=== PATIENT | male | born 1970 | race Caucasian/White ===

== ENCOUNTER 2017-09-29 23:40 | Day surgery (SDC) | payer BC, OTHER ==
[~2017-09-29] VITALS: Ht 188 cm; Wt 120.2 kg
[~2017-09-29 23:40] MED LIST: Flexeril PO; HYDR-756 PO; HYDR-87 PO; HYDR50TA3 PO; INSU100V5 SQ; PAMI30VI8 SQ
--- OUTSIDE RECORDS SUMMARY | 2017-09-29 23:45 | XMS REPORT ---
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
--- OUTSIDE RECORDS SUMMARY | 2017-09-29 23:45 | XMS REPORT ---
Author Author NOEMI SEAN Organization [facility] Address [address] [place] [address] Care Team Providers Care Steam Conditioner Filling Name Role Phone NOEMIJABARI TOBARHANY Unavailable PROBLEMS Type Condition ICD9-CM Code [id number] Code Onset Dates Condition Status SNOMED Code Problem Chronic prescription opiate use Z79.899 Active 083258630 Problem Type 2 diabetes mellitus with other specified complication E11.69 Active 376820815 Problem Elevated LFTs R79.89 Active 404546086 Problem Essential hypertension I10 Active 28626748 Problem Type 2 diabetes mellitus with hyperglycemia E11.65 Active 76424902 Problem Mixed hyperlipidemia E78.2 Active 701444608 Problem 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.817 Active 54417378 Problem Diabetic polyneuropathy associated with type 2 diabetes mellitus E11.42 Active 86873001 Problem Other hammer toe(s) (acquired), right foot M20.41 Active 479229466 Problem [facility] current use of insulin Z79.4 Active 819012173 Problem Type 2 diabetes mellitus with diabetic polyneuropathy E11.42 Active 71641523 Problem Other hammer toe(s) (acquired), left foot M20.42 Active 52031030 Problem Erectile dysfunction due to diseases classified elsewhere N52.1 Active 456257581 ALLERGIES Substance Reaction Event Type Date Status N.K.D.A. Unknown Non Drug Allergy Oct, Unknown SOCIAL HISTORY No smoking Hx information available PLAN OF CARE Activity Details Follow Up 3 Months Reason:DMII VITAL SIGNS Height 74 in 2016-10-26 Weight 273.0 lbs 2016-10-26 Temperature 98.7 degrees Fahrenheit 2016-10-26 Heart Rate 80 bpm 2016-10-26 Respiratory Rate 20 2016-10-26 BMI 35.05 kg/m2 2016-10-26 Blood pressure systolic 130 mmHg 2016-10-26 Blood pressure diastolic 86 mmHg 2016-10-26 MEDICATIONS Medication Instructions Dosage Frequency Start Date End Date Duration Status Hydrocodone-Acetaminophen 7.5-325 MG Orally hs 1 tablet as needed Sep Active Cyclobenzaprine HCl 10 mg Orally 2 times a day 1 tablet as needed 12h 30 Active Sildenafil Citrate 50 mg Orally Once a day 30min-4hours prior to intercourse 1 tablet as needed Apr, Active Humalog 100 UNIT/ML 30 units before each meal Active Lyrica 75 MG Orally Twice a day 1 capsule 12h Sep, Active Metformin HCl 1000 MG Orally twice a day 1 tablets 12h 10 May, 2015 30 days Active Lovastatin 20 mg oral Once a day 1 tablet 24h 30 days Active Levemir 100 UNIT/ML Subcutaneous twice a day 40 units Active Hydrochlorothiazide 50 mg Orally Once a day 1 tablet 24h 30 days Active RESULTS No Results PROCEDURES Procedure Date Ordered Related Diagnosis Body Site No Charge Oct 26, 2016 Office Visit, Est Pt., Level 3 Oct 26, 2016 IMMUNIZATIONS No Known Immunizations
--- OUTSIDE RECORDS SUMMARY | 2017-09-29 23:45 | XMS REPORT ---
Author Author SEAN FRANKLIN [facility] eClinicalWorks Address Unknown Phone Unavailable Care Team Providers Care Infant Childcare Provider Name Role Phone SEAN FRANKLIN CP Unavailable Allergies, Adverse Reactions, Alerts Substance Reaction Event Type N.K.D.A. Info Not Available Non Drug Allergy Problems Problem Type Condition Code Onset Dates Condition Status Problem Essential hypertension I10 Active Problem Mixed hyperlipidemia E78.2 Active Problem Type 2 diabetes mellitus with hyperglycemia E11.65 Active Assessment 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.817 Active Assessment Type 2 diabetes mellitus with hyperglycemia E11.65 Active Problem 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.817 Active Assessment Essential hypertension I10 Active Medications Medication Code System Code Instructions Start Date End Date Status Dosage Metformin HCl [facility] [address]-48 1000 MG Orally Once a day Jun 02, 2015 2 tablets Cyclobenzaprine HCl [facility] [address]-03 10 MG Orally 2 times a day 1 tablet as needed Levemir [facility] [address]-79 100 UNIT/ML Subcutaneous Once a day at bedtime Jun 03, 2015 40 units Humalog [facility] 24424040225 100 UNIT/ML INJECT 10 TO 20 UNITS SUBCUTANEOUSLY TWICE DAILY BEFORE MEALS Hydrochlorothiazide [facility] [address]-58 50 MG Orally Once a day 1 tablet Hydrocodone-Acetaminophen [facility] [address]-19 7.5-325 MG Orally every 4 hrs 1 tablet as needed Lovastatin [facility] [address]-11 20 MG TAKE ONE TABLET BY MOUTH DAILY WITH EVENING MEAL Procedures Procedure Coding System Code Date Office Visit, Est Pt., Level 3 CPT-4 22111 Aug 08, 2015 GLYCATED HEMOGLOBIN TEST CPT-4 00560 Aug 08, 2015 Vital Signs Date/Time: Aug 08, 2015 Temperature 97.2 F Weight 267.8 lbs Height 74 in BMI 34.38 Index Blood Pressure Diastolic 82 mmHg Blood Pressure Systolic 126 mmHg Cardiac Monitoring Heart Rate 88 bpm Results No Known Results Summary Purpose eClinicalWorks Submission
--- OUTSIDE RECORDS SUMMARY | 2017-09-29 23:45 | XMS REPORT ---
Author Author SEAN FRANKLIN [facility] eClinicalWorks Address Unknown Phone Unavailable Care Team Providers Care Sales Appointment Coordinator Name Role Phone SEAN FRANKLIN CP Unavailable Allergies No Known Allergies Problems Problem Type Condition ICD-9 Code Onset Dates Condition Status Problem Diabetes mellitus without mention of complication, type II or unspecified type, not stated as uncontrolled 250.00 Active Problem Essential hypertension, benign 401.1 Active Problem Lumbosacral spondylosis without myelopathy 721.3 Active Problem Other and unspecified hyperlipidemia 272.4 Active Medications Medication Code System Code Instructions Start Date End Date Status Dosage Hydrocodone-Acetaminophen [facility] [address]-78 7.5-325 MG Orally every 4 hrs 1 tablet as needed Results No Known Results Summary Purpose eClinicalWorks Submission
--- OUTSIDE RECORDS SUMMARY | 2017-09-29 23:45 | XMS REPORT ---
Author Author NOEMI SEAN Organization [facility] Address [address] [place] [address] Care Team Providers Care Alarm Signal Operator Name Role Phone NOEMIJABARI TOBARHANY Unavailable PROBLEMS Type Condition ICD9-CM Code [id number] Code Onset Dates Condition Status SNOMED Code Problem Chronic prescription opiate use Z79.899 Active 716311442 Problem Type 2 diabetes mellitus with other specified complication E11.69 Active 647242663 Problem Elevated LFTs R79.89 Active 193837106 Problem Essential hypertension I10 Active 42807637 Problem Type 2 diabetes mellitus with hyperglycemia E11.65 Active 40230929 Problem Mixed hyperlipidemia E78.2 Active 094572004 Problem 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.817 Active 23147659 Problem Diabetic polyneuropathy associated with type 2 diabetes mellitus E11.42 Active 52723670 Problem Other hammer toe(s) (acquired), right foot M20.41 Active 037009434 Problem 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 Active 089857360 Problem Type 2 diabetes mellitus with diabetic polyneuropathy E11.42 Active 49661256 Problem Other hammer toe(s) (acquired), left foot M20.42 Active 72993910 Problem Erectile dysfunction due to diseases classified elsewhere N52.1 Active 838501244 ALLERGIES No Information SOCIAL HISTORY Never Assessed PLAN OF CARE VITAL SIGNS MEDICATIONS Medication Instructions Dosage Frequency Start Date End Date Duration Status Metformin HCl 1000 MG Orally twice a day 1 tablets 12h 10 May, 2015 30 days Active RESULTS No Results PROCEDURES No Known procedures IMMUNIZATIONS No Known Immunizations MEDICAL (GENERAL) HISTORY Type Description Date Medical History hypertension Medical History hyperlipidemia Medical History type II diabetes Medical History Arthritis Medical History chronic pain-lumbar spine, neck Surgical History cholecystectomy Surgical History gastric sleeve 08/2014 Hospitalization History Hospitalization for surgery only
--- OUTSIDE RECORDS SUMMARY | 2017-09-29 23:46 | XMS REPORT | Clinical Summary ---
Author Author User, [employer] Organization [facility] Address Unknown Phone Unavailable Allergies, Adverse Reactions, Alerts Allergy Name Reaction Description Start Date Severity Status Provider LYDIA INHIBITORS Dizziness Critical Active Clarissa Ring Conditions or Problems Problem Name Problem Code Onset Date Status Entry Date Provider Comment Standard Description Annotate DIABETES MELLITUS, TYPE II, UNCONTROLLED, W/O COMPLICATIONS 250.02 Active Clarissa Ring Diabetes mellitus without mention of complication, type II or unspecified type, uncontrolled OBESITY 278.00 Active Clarissa Ring Obesity, unspecified HYPERCHOLESTEROLEMIA 272.0 Resolved Clarissa Ring Pure hypercholesterolemia BACK PAIN 724.5 Active Clairssa Ring Backache, unspecified ELEVATED BLOOD PRESSURE WITHOUT DIAGNOSIS OF HYPERTENSION 796.2 Resolved Clarissa Ring Elevated blood pressure reading without diagnosis of hypertension SINUS CONGESTION 478.1 Resolved Clarissa Ring Other diseases of nasal cavity and sinuses SINUSITIS, ACUTE 461.9 Resolved Clarissa Ring Acute sinusitis, unspecified HIP PAIN 719.45 Resolved Clarissa Ring Pain in joint involving pelvic region and thigh VARICOSE VEINS, LOWER EXTREMITIES 454.9 Resolved Clarissa Ring Asymptomatic varicose veins KIDNEY DISORDER NOS 593.9 Resolved Clarissa Ring Unspecified disorder of kidney and ureter SHOULDER PAIN 719.41 Resolved Clarissa Ring Pain in joint involving shoulder region right FEVER 780.6 Resolved Clarissa Ring Fever and other physiologic disturbances of temperature regulation SINUS CONGESTION 478.1 Resolved Clarissa Ring Other diseases of nasal cavity and sinuses SINUSITIS 473.9 Resolved Clairssa Ring Unspecified sinusitis (chronic) PHARYNGITIS, ACUTE 462 Resolved Clarissa Ring Acute pharyngitis C8 RADICULOPATHY 723.4 Resolved Clarissa Ring Brachial neuritis or radiculitis NOS TINEA PEDIS 110.4 Resolved Clarissa Ring Dermatophytosis of foot ACUTE SPHENOIDAL SINUSITIS 461.3 Resolved Clarissa Ring Acute sphenoidal sinusitis HYPERTENSION 401.1 Active Clarissa Ring Benign essential hypertension HYPERLIPIDEMIA 272.4 Active Clarissa Ring Other and unspecified hyperlipidemia CHEST PAIN, ATYPICAL 786.59 Resolved Clarissa Ring Other chest pain HEALTH SCREENING V70.0 Resolved Clarissa Ring Routine general medical examination at a health care facility COUGH 786.2 Resolved Clarissa Ring Cough SINUSITIS, SPHENOIDAL, ACUTE 461.3 Inactive Clarissa Ring Acute sphenoidal sinusitis HEALTH SCREENING V70.0 Inactive Clarissa Ring Routine general medical examination at a health care facility SINUSITIS, SPHENOIDAL, ACUTE 461.3 Resolved Clarissa Ring Acute sphenoidal sinusitis POSTNASAL DRIP SYNDROME 473.9 Active Clarissa Ring Unspecified sinusitis (chronic) HYPOGLYCEMIA 251.2 Active Clarissa Ring Hypoglycemia, unspecified Medication List Medication Instructions Start Date Stop Date Generic Name NDC Status Provider Patient Instruction NOVOLOG FLEXPEN 100 UNIT/ML SOPN 15 UNITS BEFORE MEALS INSULIN ASPART 27595183565 Active Arline Leggett LANTUS SOLOSTAR 100 UNIT/ML SOLN 35 units injection qHS INSULIN GLARGINE 88928387183 Active Clarissa Ring HUMALOG KWIKPEN 100 UNIT/ML SOLN 15 units before meals INSULIN LISPRO (HUMAN) 47331231168 No Longer Active Arline Leggett BYDUREON 2 MG SUSR 1 injection weekly. EXENATIDE 53526549552 No Longer Active Clarissa Ring CYCLOBENZAPRINE HCL 10 MG TABS 1 PO TID PRN CYCLOBENZAPRINE HCL 17932008921 Active Arline Leggett ATROVENT 0.06 % SOLN 2 puffs each nostril TID prn runny nose 2013 IPRATROPIUM BROMIDE 75565005038 No Longer Active Clarissa Ring TESSALON PERLES 100 MG CAPS 1 PO TID prn cough BENZONATATE 98777338004 No Longer Active Clarissa Ring AUGMENTIN 875-125 MG TAB 1 PO BID AMOXICILLIN-POT CLAVULANATE 46787492237 No Longer Active Clarissa Ring HYDROCHLOROTHIAZIDE 25 MG TABS 1-2 PO daily HYDROCHLOROTHIAZIDE 64533655388 Active Arline Leggtet HYDROCODONE-ACETAMINOPHEN 7.5-325 MG TABS 1 po Q6hrs prn pain HYDROCODONE-ACETAMINOPHEN 40828250835 Active Clarissa Ring AUGMENTIN 875-125 MG TAB 1 PO BID AMOXICILLIN-POT CLAVULANATE 64215834979 No Longer Active Clarissa KAYE'S NASAL SPRAY (DEXAMETHASONE, GENTAMICIN, SALINE) 2 puffs each nostril TID for [address] DIAZ NASAL SPRAY ( DEXAMETHASONE, GENTAMICIN, SALINE) No Longer Active Clarissa Ring BD PEN NEEDLE SHORT U/F 31G X 8 MM MISC DIRECTED DX: DIABETES INSULIN PEN NEEDLE 79123331833 No Longer Active Arline Leggett RELION PEN NEEDLES 31G X 8 MM MISC DIRECTED DX: DIABETES INSULIN PEN NEEDLE 79322042760 Active Arline Leggett VICTOZA 18 MG/3ML SOLN 1.2mg injection QHS LIRAGLUTIDE 05316069098 No Longer Active Clarissa Ring BD INSULIN SYRINGE 29G X 1/2" 2 ML MISC as directed INSULIN SYRINGE-NEEDLE U-100 01014988827 No Longer Active Clarissa Ring BD SAFETY-JOSE INSULIN SYRINGE 29G X 1/2" 1 ML MISC as directed INSULIN SYRINGE-NEEDLE U-100 96182886293 No Longer Active Clarissa HOWEFRARUNA ODT 4 MG TBDP 1 PO Q6hrs prn ONDANSETRON 88950336059 No Longer Active Clarissa Ring GLUCOMETER TEST STRIPS TEST BS BID DX: DIABETES GLUCOMETER TEST STRIPS No Longer Active Clarissa Ring GLUCOMETER MACHINE DX: Diabetes GLUCOMETER MACHINE No Longer Active Clarissa Ring PEN NEEDLES /16" 31G X 8 MM MISC as directed INSULIN PEN NEEDLE 01923395754 No Longer Active Clarissa Ring AMOXIL 875 MG TABS 1 PO BID AMOXICILLIN No Longer Active José Luis DIAZ NASAL SPRAY (DEXAMETHASONE, GENTAMICIN, SALINE) 2 puffs each nostril TID for [address] DIAZ NASAL SPRAY ( DEXAMETHASONE, GENTAMICIN, SALINE) No Longer Active Clarissa Ring AUGMENTIN 875-125 MG TAB 1 PO BID AMOXICILLIN-POT CLAVULANATE 53156538365 No Longer Active Clarissa Aleta Ring PHENERGAN 25 MG TAB 1 PO Q6hrs prn PROMETHAZINE HCL No Longer Active Clairssa Aleta Ring HUMALOG SOLN 20-30units before meals INSULIN LISPRO (HUMAN) SOLN 03024733659 No Longer Active Clarissa Aleta Ring HUMALOG 100 U/ML SOLN 10 units SQ before meals INSULIN LISPRO (HUMAN) 15690918469 No Longer Active Clarissa Aleta Ring AUGMENTIN 875-125 MG TAB 1 PO BID AMOXICILLIN-POT CLAVULANATE 22465783740 No Longer Active Clarissa Aleta Ring PHENTERMINE HCL 37.5 MG CAPS 1 PO Daily PHENTERMINE HCL 75129151922 No Longer Active Clarissa Aleta Ring VITAMIN D 1000 UNIT TABS 1 PO Daily CHOLECALCIFEROL 56499342417 Active Clarissa Aleta Ring AUGMENTIN 875-125 MG TAB 1 PO BID AMOXICILLIN-POT CLAVULANATE 79077308827 No Longer Active Clarissaruth Ring GLUCOPHAGE 1000 MG TAB 1 PO BID METFORMIN HCL 49117226711 Active Arline Leggett CINNAMON CAPS 1000mg PO daily CINNAMON CAPS 90208270161 No Longer Active Clarissa Aleta Ring BYETTA 10 MCG PEN 10 MCG/0.04ML SOLN 1 injection BID EXENATIDE 19820347841 No Longer Active Clarissaruth Ring [id number] SOLN 2 drops left eye TID for 7 days [id number]-[id number] 25011865682 No Longer Active Clarissaruth Ring AUGMENTIN 875-125 MG TAB 1 PO BID AMOXICILLIN-POT CLAVULANATE 55616582778 No Longer Active Clarissa DIAZ NASAL SPRAY (DEXAMETHASONE, GENTAMICIN, SALINE) 2 puffs each nostril TID for [address] DIAZ NASAL SPRAY ( DEXAMETHASONE, GENTAMICIN, SALINE) No Longer Active Clarissa Ring PHENTERMINE HCL 37.5 MG CAPS 1 PO Daily PHENTERMINE HCL 87009932400 No Longer Active Clarissa Ring XANAX 1 MG TABS 1/2 PO QHS prn ALPRAZOLAM 56540792139 No Longer Active Clarissa Ring LOVASTATIN 20 MG TABS 1 PO daily LOVASTATIN 34018294620 Active Arline Leggett BENAZEPRIL HCL 20 MG TABS 1 PO daily (on hold) BENAZEPRIL HCL 88322888458 No Longer Active Clarissa Ring LOTRISONE 0.05-1 % CREAM apply to affected area BID for 10 days CLOTRIMAZOLE-BETAMETHASONE 41747973936 No Longer Active Clarissa Ring GLYBURIDE 1.25 MG TABS 1 PO BID GLYBURIDE 86222997446 No Longer Active Clarissa Ring PHENTERMINE HCL 37.5 MG CAPS 1 PO Daily PHENTERMINE HCL 47411498757 No Longer Active Clarissa Ring BIAXIN 500 MG TAB 1 PO BID for 7 days CLARITHROMYCIN 99614839387 No Longer Active Clarissa Ring GLUCOVANCE 1.25-250 MG TABS 1 PO BID GLYBURIDE- METFORMIN 92245106969 No Longer Active Clarissa DIAZ NASAL SPRAY (DEXAMETHASONE, GENTAMICIN, SALINE) 2 puffs each nostril TID DR. KAYE'S NASAL SPRAY (DEXAMETHASONE, GENTAMICIN, SALINE) No Longer Active Clarissa Aleta Ring AUGMENTIN 875-125 MG TABS 1 PO BID for 7 days AMOXICILLIN-POT CLAVULANATE 84100644507 No Longer Active Clarissa Aleta Ring LOTENSIN HCT 20-25 MG TABS 1 PO daily BENAZEPRIL- HYDROCHLOROTHIAZIDE 52268049213 No Longer Active Clarissa Aleta Ring SKELAXIN 800 MG TABS 1 PO BID prn METAXALONE 58660860523 No Longer Active Clarissa Aleta Ring HYDROCHLOROTHIAZIDE 25 MG TAB 1 PO QD HYDROCHLOROTHIAZIDE 36760876897 No Longer Active Clarissa Aleta Ring AMOXIL 500 MG CAPS 1 PO TID for 7 days AMOXICILLIN 80291789694 No Longer Active Clarissa Aleta KAYE'Roderick NASAL SPRAY [address] DIAZ NASAL SPRAY No Longer Active Clarissa Aleta Ring FLEXERIL 10 MG TABS 1 PO TID prn CYCLOBENZAPRINE HCL 82187295492 No Longer Active Clarissa Aleta Ring AMOXICILLIN 500 MG CAPS 1 po TID AMOXICILLIN 24355711199 No Longer Active Clarissa Aleta Ring NAFTIN 1 % CREA Apply to affected area daily NAFTIFINE HCL 07638639694 No Longer Active Clarissa Aleta Ring PALGIC 4 MG TABS 1 PO QD CARBINOXAMINE MALEATE 89198735364 No Longer Active Clarissa Aleta Ring ATROVENT 0.06 % SOLN 2 puffs q nostril bid IPRATROPIUM BROMIDE 00184541249 No Longer Active Clarissa Aleta Ring ZITHROMAX Z-CHRISTIN 250 MG TABS 2 tabs today, then 1 tab x 4 days AZITHROMYCIN 04201284533 No Longer Active Clarissa Aleta Ring GLUCOPHAGE 500 MG TABS 1 tab po bid METFORMIN HCL 69103744037 No Longer Active Clarissa Ring GLUCOPHAGE XR 500 MG TB24 2 PO QD METFORMIN HCL 39240418902 No Longer Active Arline Leggett Immunizations Vaccine Administration Date Value Standard Description Influenza vaccine given Done influenza virus vaccine, unspecified formulation Vital Signs Date Name Value Unit Range Description blood pressure, diastolic - 8462-4 80 mm[Hg] BP zavala blood pressure, systolic - 8480-6 120 mm[Hg] BP sys pulse rate E&M - 8867-4 80 /min Heart rate respiratory rate E&M - 9279-1 14 /min Resp rate temperature E&M 98.6 [degF] Body temperature weight E&M - 3141-9 262 [lb_av] Weight Measured blood pressure, diastolic - 8462-4 80 mm[Hg] BP zavala blood pressure, systolic - 8480-6 134 mm[Hg] BP sys pulse rate E&M - 8867-4 70 /min Heart rate respiratory rate E&M - 9279-1 12 /min Resp rate temperature E&M 98.1 [degF] Body temperature weight E&M - 3141-9 269 [lb_av] Weight Measured blood pressure, diastolic - 8462-4 80 mm[Hg] BP zavala blood pressure, systolic - 8480-6 140 mm[Hg] BP sys pulse rate E&M - 8867-4 92 /min Heart rate respiratory rate E&M - 9279-1 14 /min Resp rate temperature E&M 98.6 [degF] Body temperature weight E&M - 3141-9 270 [lb_av] Weight Measured Diagnostic Results Date Name Value Unit Range Description Clinical Lists Update: CBC,CMP,Chol,Trig,HgA1c - Chemistry Estimated Glomerular Filtration Rate (calc) 118 mL/min/1.73m2 potassium, serum 3.8 mmol/L glucose, plasma fasting 211 mg/dL alkaline phosphatase, serum 79 U/L anion gap, serum 19 urea nitrogen, blood 10 mg/dL sodium, serum 137 mmol/L calcium, serum 9.5 mg/dL triglyceride, serum, fasting 319 mg/dL chloride, serum 94 mmol/L bilirubin, serum, total 0.9 mg/dL cholesterol, serum 154 mg/dL alanine aminotransferase (SGPT), serum 84 U/L carbon dioxide, venous blood 28.0 mmol/L aspartate aminotransferase (SGOT), serum 56 U/L creatinine, serum 0.8 mg/dL protein, total, serum 6.9 g/dL hemoglobin A1C, blood, as % of total hemoglobin 10.1 % albumin, serum 4.7 g/dL Clinical Lists Update: CBC,CMP,Chol,Trig,HgA1c - Hematology hematocrit, blood 51 % hemoglobin, blood 16.7 g/dL platelet count 206 10*3/mm3 erythrocyte (RBC) count 5.46 10*6/mm3 leukocyte count, blood 6.8 10*3/mm3 mean corpuscular volume, RBC 93 fL red blood cell distribution width 13.1 % Clinical Lists Update: CMP,Chol,Trig,HgA1c,Microalbumin - Chemistry bilirubin, serum, total 0.8 mg/dL potassium, serum 4.0 mmol/L triglyceride, serum, fasting 143 mg/dL chloride, serum 97 mmol/L sodium, serum 137 mmol/L calcium, serum 9.6 mg/dL anion gap, serum 13 urea nitrogen, blood 11 mg/dL glucose, plasma fasting 179 mg/dL alkaline phosphatase, serum 58 U/L Estimated Glomerular Filtration Rate (calc) 111 mL/min/1.73m2 albumin, serum 4.6 g/dL cholesterol, serum 129 mg/dL carbon dioxide, venous blood 31.0 mmol/L alanine aminotransferase (SGPT), serum 65 U/L creatinine, serum 0.8 mg/dL aspartate aminotransferase (SGOT), serum 42 U/L hemoglobin A1C, blood, as % of total hemoglobin 8.5 % protein, total, serum 6.8 g/dL Clinical Lists Update: CMP,Chol,Trig,HgA1c,Microalbumin - Urinalysis microalbumin, urine, semiquantitative 0.9 mg/dL Encounters Code Encounter Date Provider Facility CPT-15348 Ofc Vst, Est Level IV 14:10:16 CDT Clarissa Ring DO, FACP CPT-21474 Ofc Vst, Est Level III 12:20:17 CDT Clarissa Ring DO, FACP CPT-57785 Ofc Vst, Est Level IV 17:08:23 CDT Clarissa Ring DO, FACP CPT-71346 Ofc Vst, Est Level III 12:23:49 PLANTING MATERIAL CARRIER Clarissa Ring DO, FACP CPT-67767 Ofc Vst, Est Level III 12:00:18 CDT Clarissa Ring DO, FACP CPT-40006 Ofc Vst, Est Level IV 10:59:00 CDT Clarissa Ring DO, FACP CPT-38616 Ofc Vst, Est Level III 16:28:00 CDT Clarissaruth [facility] CPT-69015 Ofc Vst, Est Level IV 11:17:00 CDT Clarissa Aleta Vaughn Ring, DO, FACP CPT-09209 Ofc Vst, Est Level IV 10:26:54 CDT Clarissaruth Vaughn María Elena, DO, FACP CPT-05058 Ofc Vst, Est Level IV 13:38:30 PLANTING MATERIAL CARRIER Clarissa Vaughn María Elena, DO, FACP CPT-76686 Ofc Vst, Est Level IV 10:23:30 CDT Clarissa Aelta Vaughn María Elena, DO, FACP CPT-80668 Ofc Vst, Est Level IV 11:52:42 CDT Clarissa Vaughn María Elena, DO, FACP CPT-49064 Ofc Vst, Est Level IV 11:20:48 PLANTING MATERIAL CARRIER Clarissa Vaughn María Elena, DO, FACP CPT-10804 Ofc Vst, Est Level V 11:42:54 CDT Clarissa Vaughn María Elena, DO, FACP CPT-55944 Ofc Vst, Est Level IV 11:26:09 CDT Clarissa Vaughn María Elena, DO, FACP CPT-64248 Ofc Vst, Est Level IV 09:56:44 CDT Clarissaruth Vaughn María Elena, DO, FACP CPT-27876 Ofc Vst, Est Level IV 13:49:19 CDT Clarissa Aleta Vaughn María Elena, DO, FACP CPT-39644 Ofc Vst, Est Level IV 13:55:27 PLANTING MATERIAL CARRIER Clarissa Vaughn María Elena, DO, FACP CPT-56889 Ofc Vst, Est Level IV 11:28:40 CDT Clarissa Aleta Vaughn María Elena, DO, FACP CPT-08037 Ofc Vst, Est Level IV 16:13:54 PLANTING MATERIAL CARRIER Clarissa Aleta María Elena Ring, DO, FACP CPT-95686 Ofc Vst, Est Level IV 13:52:43 CDT Clarissa Aleta María Elena Ring, DO, FACP CPT-71578 Ofc Vst, Est Level IV 10:07:24 CDT Clarissa Aleta María Elena Clarissaruth Ring, DO, FACP CPT-09837 Ofc Vst, Est Level V 09:47:24 CDT Clarissa Aleta María Elena Ring, DO, FACP CPT-61303 Ofc Vst, Est Level IV 14:40:42 CDT Clarissa Aletadon Ring, DO, FACP CPT-06050 Ofc Vst, Est Level IV 10:20:34 PLANTING MATERIAL CARRIER Clarissa Ring [facility] CPT-85995 Ofc Vst, Est Level III 10:31:18 PLANTING MATERIAL CARRIER Clarissa Ring [facility] CPT-66564 Ofc Vst, Est Level IV 10:55:42 CDT Clarissa Ring [facility] CPT-53179 Ofc Vst, Est Level III 16:11:26 CDT Clarissa Ring [facility] CPT-50076 Ofc Vst, Est Level IV 13:58:42 CDT Clarissa Aleta Ring [facility] CPT-49798 Ofc Vst, Est Level IV 09:52:20 PLANTING MATERIAL CARRIER Clarissa Ring [facility] CPT-73266 Ofc Vst, Est Level IV 11:17:40 PLANTING MATERIAL CARRIER Clarissa Ring [facility] CPT-57150 Ofc Vst, Est Level IV 11:26:57 CDT Clarissaruth Ring [facility] CPT-62109 Ofc Vst, Est Level IV 13:10:50 PLANTING MATERIAL CARRIER Clarissa Ring [facility] CPT-13868 Ofc Vst, Est Level IV 18:26:20 CDT Clarissa Ring [facility] CPT-91321 Ofc Vst, Est Level IV 13:25:01 CDT Clarissa Ring [facility] CPT-12691 Ofc Vst, Est Level IV 12:46:30 CDT [facility] Aleta Ring [facility] CPT-05345 Ofc Vst, Est Level IV 17:01:43 CDT [facility] Aleta Ring [facility] CPT-93638 Ofc Vst, New Level IV 14:01:02 CDT Clarissa Aleta Ring [facility] Procedures Code Procedure Name Date Entry Date Standard Description CPT-82452 Preventive, Est, (40-64) 14:08:40 CDT CPT-80287 Preventive, Est, (40-64) 14:20:11 PLANTING MATERIAL CARRIER
--- OUTSIDE RECORDS SUMMARY | 2017-09-29 23:46 | XMS REPORT ---
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.817 Active 36831424 Problem Elevated LFTs R79.89 Active 423510149 Problem Type 2 diabetes mellitus with other specified complication E11.69 Active 906772248 Problem 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
--- OUTSIDE RECORDS SUMMARY | 2017-09-29 23:46 | XMS REPORT ---
Author Author SEAN FRANKLIN [facility] [employer] Address Unknown Phone Unavailable Care Team Providers Care Case Assembler Name Role Phone SEAN FRANKLIN CP Unavailable [...] Instructions Start Date End Date Status Dosage Cyclobenzaprine HCl [facility] [address]-18 10 MG Orally 2 times a day 1 tablet as needed Results No Known Results Summary Purpose eClinicalWorks Submission
--- OUTSIDE RECORDS SUMMARY | 2017-09-29 23:46 | XMS REPORT ---
Author Author SEAN FRANKLIN [employer] Address Unknown Phone Unavailable Care Team Providers Care Sound Printer Name Role Phone SEAN FRANKLIN CP Unavailable Allergies, Adverse Reactions, Alerts Substance Reaction Event Type N.K.D.A. 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.817 Active Problem Essential hypertension I10 Active Problem Mixed hyperlipidemia E78.2 Active Problem Type 2 diabetes mellitus with other specified complication E11.69 Active Problem Erectile dysfunction due to diseases classified elsewhere N52.1 Active Problem Elevated LFTs R79.89 Active Problem Chronic prescription opiate use Z79.899 Active Problem Type 2 diabetes mellitus with hyperglycemia E11.65 Active Problem Type 2 diabetes mellitus with diabetic polyneuropathy E11.42 Active Problem 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 Active Assessment 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 Active Assessment Type 2 diabetes mellitus with diabetic polyneuropathy E11.42 Active Assessment Type 2 diabetes mellitus with other specified complication E11.69 Active Assessment Erectile dysfunction due to diseases classified elsewhere N52.1 Active Assessment 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.817 Active Assessment Mixed hyperlipidemia E78.2 Active Assessment Essential hypertension I10 Active Assessment Type 2 diabetes mellitus with hyperglycemia E11.65 Active Medications Medication Code System Code Instructions Start Date End Date Status Dosage Metformin HCl [facility] [address]-80 1000 MG Orally twice a day Jun 02, 2015 1 tablets Sildenafil Citrate [facility] [address]-22 50 mg Orally Once a day 30min-4hours prior to intercourse May 06, 2016 1 tablet as needed Humalog [facility] [address]-25 100 UNIT/ML subcutaneous 30 units before each meal Cyclobenzaprine HCl [facility] 03449854719 10 MG Orally 2 times a day 1 tablet as needed Tramadol HCl [facility] [address]-86 50 mg Orally every 6 hrs May 06, 2016 1 tablet as needed Lovastatin [facility] [address]-91 20 MG oral qhs One tablet Hydrochlorothiazide [facility] [address]-44 50 MG Orally Once a day 1 tablet Levemir [facility] [address]-68 100 UNIT/ML Subcutaneous twice a day 40 units Procedures Procedure Coding System Code Date Office Visit, Est Pt., Level 3 CPT-4 80407 May 06, 2016 GLYCATED HEMOGLOBIN TEST CPT-4 34931 May 06, 2016 Vital Signs Date/Time: May 06, 2016 Cardiac Monitoring Heart Rate 84 bpm Weight 266.2 lbs Height 74 in Blood Pressure Diastolic 77 mmHg Blood Pressure Systolic 138 mmHg Results No Known Results Summary Purpose eClinicalWorks Submission
--- OUTSIDE RECORDS SUMMARY | 2017-09-29 23:47 | XMS REPORT | Continuity of Care Document ---
Author Author [facility] Address Unknown Phone Unavailable Allergies Active Description Code Type Severity Reaction Onset Reported/Identified Relationship to Patient Clinical Status Yes No Known Drug Allergies [id number] Drug Allergy Unknown N/ A 11/12/2015 Medications Problems Date Dx Coded Attending Type Code Diagnosis Diagnosed By 05/27/2014 HAI CLEVELAND MD Ot 278.00 05/27/2014 HAI CLEVELAND MD Ot 721.3 05/27/2014 HAI CLEVELAND MD Ot V58.69 05/27/2014 HAI CLEVELAND MD Ot V85.35 11/20/2014 SEAN FRANKLIN MD N 250.00 DIABETES MELLITUS WITHOUT MENTION OF COMPLICATION TYPE II OR UNSPECIFIED TYPE NOT STATED UNCONTROLLED 11/20/2014 SEAN FRANKLIN MD N 272.4 OTHER AND UNSPECIFIED HYPERLIPIDEMIA 11/20/2014 SEAN FRANKLIN MD N 401.1 BENIGN ESSENTIAL HYPERTENSION 11/20/2014 SEAN FRANKLIN MD N 721.3 LUMBOSACRAL SPONDYLOSIS WITHOUT MYELOPATHY 11/12/2015 ANY HATCH APRN Ot M47.812 SPONDYLOSIS W/O MYELOPATHY OR RADICULOPA 11/12/2015 ANY HATCH APRN Ot M51.16 INTERVERTEBRAL DISC DISORDERS W RADICULO 11/12/2015 ANY HATCH APRN Ot S09.90XA UNSPECIFIED INJURY OF HEAD, INITIAL ENCO 11/12/2015 ANY HATCH APRN Ot S16.1XXA STRAIN OF MUSCLE, FASCIA AND TENDON AT N 11/12/2015 ANY HATCH APRN Ot W00.0XXA FALL ON SAME LEVEL DUE TO ICE AND SNOW , 11/12/2015 ANY HATCH APRN Ot Y92.[address] OF OCCURRENCE O 11/12/2015 ANY HATCH APRN Ot Y99.0 CIVILIAN ACTIVITY DONE FOR INCOME OR PAY 11/17/2015 HAI CLEVELAND MD Ot 722.52 Procedures Results Encounters ACCT No. Visit Date/Time Discharge Status Pt. Type Provider Facility Loc./Unit Complaint [id number] 11/20/2014 10:09:00 11/20/2014 23: 59:59 CLS Outpatient NOEMI KLEIN, SEAN N [id number] 05/24/2017 09:45:00 2016 23:59:59 CLS Preadmit BATSHEVA CRISOSTOMO DO [facility] ENDO COLONOSCOPY [id number] 11/12/2015 10:32:00 2015 12:12:00 DIS Emergency ANY HATCH CAN CARRIER [facility] ER [id number] 05/27/2014 14:54:00 2013 15:40:00 DIS Outpatient HAI CLEVELAND MD [facility] CARD [id number] 05/23/2014 11:21:00 2013 23:59:59 CLS Outpatient HAI CLEVELAND MD [facility] RAD
--- OUTSIDE RECORDS SUMMARY | 2017-09-29 23:47 | XMS REPORT ---
Author Author HEIDI ERWIN Organization [facility] Address [address] [place] [address] Care Team Providers Care Hair Blender Name Role Phone HEIDI ERWIN Unavailable PROBLEMS Type Condition ICD9-CM Code [id number] Code Onset Dates Condition Status SNOMED Code Problem Chronic prescription opiate use Z79.899 Active 883569000 Problem Type 2 diabetes mellitus with other specified complication E11.69 Active 769019789 Problem Elevated LFTs R79.89 Active 789671487 Problem Essential hypertension I10 Active 08832722 Problem Type 2 diabetes mellitus with hyperglycemia E11.65 Active 52987198 Problem Mixed hyperlipidemia E78.2 Active 061145827 Problem 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.817 Active 34369988 Problem Diabetic polyneuropathy associated with type 2 diabetes mellitus E11.42 Active 81924941 Problem Other hammer toe(s) (acquired), right foot M20.41 Active 724940501 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 Unknown Non Drug Allergy Oct, Unknown SOCIAL HISTORY No smoking Hx information available PLAN OF CARE Activity Details Follow Up prn Reason: VITAL SIGNS Height 74 in 2016-11-12 Weight 267.4 lbs 2016-11-12 Temperature 97.0 degrees Fahrenheit 2016-11-12 Heart Rate 100 bpm 2016-11-12 Respiratory Rate 2016-11-12 BMI 34.33 kg/m2 2016-11-12 Blood pressure systolic 126 mmHg 2016-11-12 Blood pressure diastolic 88 mmHg 2016-11-12 MEDICATIONS Medication Instructions Dosage Frequency Start Date End Date Duration Status Metformin HCl 1000 MG Orally twice a day 1 tablets 12h 10 May, 2015 30 days Active Hydrochlorothiazide 50 mg Orally Once a day 1 tablet 24h 30 days Active Sildenafil Citrate 50 mg Orally Once a day 30min-4hours prior to intercourse 1 tablet as needed Apr, Active Levemir 100 UNIT/ML Subcutaneous twice a day 40 units Active Lyrica 75 MG Orally Twice a day 1 capsule 12h Sep, Active Humalog 100 UNIT/ML 30 units before each meal Active Hydrocodone-Acetaminophen 7.5-325 MG Orally hs 1 tablet as needed Sep Active Cyclobenzaprine HCl 10 mg Orally 2 times a day 1 tablet as needed 12h 30 Active Lovastatin 20 mg oral Once a day 1 tablet 24h 30 days Active RESULTS Name Result Date Reference Range STREP A (IN HOUSE) 2016-11-12 STREP A negative Control + Lot # [id number] Exp date PROCEDURES Procedure Date Ordered Related Diagnosis Body Site STREP A ASSAY W/OPTIC Nov 12, 2016 Office Visit, Est Pt., Level 3 Nov 12, 2016 IMMUNIZATIONS No Known Immunizations
--- OUTSIDE RECORDS SUMMARY | 2017-09-29 23:47 | XMS REPORT ---
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 Name Role Phone WEI WEBB Unavailable PROBLEMS Type Condition ICD9-CM Code [id number] Code Onset Dates Condition Status SNOMED Code Problem Type 2 diabetes mellitus with hyperglycemia E11.65 Active 98064521 Problem [facility] current use of insulin Z79.4 Active 544964509 Problem Chronic prescription opiate use Z79.899 Active 282418628 Assessment Type 2 diabetes mellitus with hyperglycemia E11.65 Sep, Active 766077073181906 Problem 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.817 Active 92728317 Problem Mixed hyperlipidemia E78.2 Active 866369036 Problem Essential hypertension I10 Active 51945270 Problem Other hammer toe(s) (acquired), right foot M20.41 Active 565673258 Problem Other hammer toe(s) (acquired), left foot M20.42 Active 81034838 Problem Erectile dysfunction due to diseases classified elsewhere N52.1 Active 597967583 Problem Type 2 diabetes mellitus with diabetic polyneuropathy E11.42 Active 51751370 Problem Elevated LFTs R79.89 Active 724559526 Problem Type 2 diabetes mellitus with other specified complication E11.69 Active 335925495 ALLERGIES Substance Reaction Event Type Date Status N.K.D.A. Unknown Non Drug Allergy Sep, Unknown SOCIAL HISTORY No smoking Hx information available PLAN OF CARE VITAL SIGNS Height 74 in 2016-10-01 Weight 273.3 lbs 2016-10-01 Heart Rate 84 bpm 2016-10-01 Respiratory Rate 18 2016-10-01 BMI 35.09 kg/m2 2016-10-01 Blood pressure systolic 142 mmHg 2016-10-01 Blood pressure diastolic 82 mmHg 2016-10-01 MEDICATIONS Medication Instructions Dosage Frequency Start Date End Date Duration Status Humalog 100 UNIT/ML 30 units before each meal Active Lyrica 75 MG Orally Twice a day 1 capsule 12h 09 Dec, 2016 Active Levemir 100 UNIT/ML Subcutaneous twice a day 40 units Active Hydrocodone-Acetaminophen 7.5-325 MG Orally hs 1 tablet as needed Sep Active Metformin HCl 1000 MG Orally twice a day 1 tablets 12h 10 May, 2015 Active Sildenafil Citrate 50 mg Orally Once a day 30min-4hours prior to intercourse 1 tablet as needed Apr, Active Lovastatin 20 MG oral qhs One tablet Active Hydrochlorothiazide 50 MG Orally Once a day 1 tablet 24h Active Cyclobenzaprine HCl 10 MG Orally 2 times a day 1 tablet as needed 12h 30 Active RESULTS Name Result Date Reference Range A1C (IN HOUSE) 2016-10-01 A1C IN HOUSE 10.0 4.3 - 5.6 % Previous A1c 10.3 Lot [id number] Exp date 06/2018 PROCEDURES Procedure Date Ordered Related Diagnosis Body Site GLYCATED HEMOGLOBIN TEST Oct 01, 2016 Office Visit, Est Pt., Level 3 Oct 01, 2016 IMMUNIZATIONS No Known Immunizations
--- OUTSIDE RECORDS SUMMARY | 2017-09-29 23:47 | XMS REPORT ---
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
[2017-09-29] MEDS ORDERED: ASPIRIN 81 MG CHEW (CHILDREN'S ASA) ONE (23:50)
[2017-09-30] VITALS (12 sets, daily range): BP systolic 106–158; BP diastolic 68–98
[2017-09-30] MEDS ORDERED: ASPIRIN 81 MG CHEW (CHILDREN'S ASA) PO ONE
[2017-09-30 00:04] LABS: BASOPHILS % (AUTO) 0 % (0-10); EOSINOPHILS # (AUTO) 0.1 10^3/uL (0.0-0.3); EOSINOPHILS % (AUTO) 1 % (0-10); LYMPHOCYTES # (AUTO) 3.7 X 10^3 (1.0-4.0); LYMPHOCYTES % (AUTO) 46 % (12-44); MEAN CORPUSCULAR HEMOGLOBIN 30 PG (25-34); MEAN CORPUSCULAR HGB CONC 36 G/DL (32-36); MEAN CORPUSCULAR VOLUME 85 FL (80-99); MEAN PLATELET VOLUME 10.1 FL (7.4-10.4); MONOCYTES # (AUTO) 0.5 X 10^3 (0.0-1.0); MONOCYTES % (AUTO) 7 % (0-12); NEUTROPHILS # (AUTO) 3.7 X 10^3 (1.8-7.8); NEUTROPHILS % (AUTO) 46 % (42-75); PLATELET COUNT 209 10^3/uL (130-400); RED BLOOD COUNT 5.58 10^6/uL (4.35-5.85); RED CELL DISTRIBUTION WIDTH 12.4 % (10.0-14.5)
[2017-09-30 00:08] LABS: INR 0.9 (0.8-1.4)
[2017-09-30 00:16] LABS: PROTHROMBIN TIME PATIENT 11.9 SEC (12.2-14.7)
[2017-09-30 00:24] LABS: ALANINE AMINOTRANSFERASE 56 U/L (0-55); ALBUMIN 4.5 GM/DL (3.2-4.5); ANION GAP 19 MMOL/L (5-14); ASPARTATE AMINO TRANSFERASE 33 U/L (5-34); BILIRUBIN,TOTAL 0.5 MG/DL (0.1-1.0); BLOOD UREA NITROGEN 16 MG/DL (7-18); BUN/CREATININE RATIO 14; CALCIUM 9.8 MG/DL (8.5-10.1); CARBON DIOXIDE 18 MMOL/L (21-32); CHLORIDE 102 MMOL/L (98-107); CREATININE SERUM 1.11 MG/DL (0.60-1.30); GFR ESTIMATED > 60; GLUCOSE 215 MG/DL (70-105); MAGNESIUM 2.2 MG/DL (1.8-2.4); POTASSIUM 3.9 MMOL/L (3.6-5.0); SODIUM 139 MMOL/L (135-145); TOTAL PROTEIN 7.8 GM/DL (6.4-8.2)
[2017-09-30 00:31] LABS: MYOGLOBIN SERUM 59.7 NG/ML (10.0-92.0)
--- NOTE | 2017-09-30 01:13 | ED Chest Pain ---
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 PT REPORTS ALSO HAD PAIN EARLIER TODAY WHILE WORKING IN HIS SHOP AT HOME. REPORTS PAIN RADIATING THROUGH TO BACK ET INTO NECK. DOES REPORT HX OF CHRONIC NECK ET BACK PAIN. PT IS SOB ET DIAPHORETIC AT THIS TIME. NO OTHER C/O VOICED Nursing Sepsis Screen: No Definite Risk Source: patient Exam Limitations: no limitations History of Present Illness Time seen by provider: 23:49 Initial Comments This 47-year-old gentleman presents to the emergency room with complaints of intense chest pain left of the sternum and radiating to his back. He reports having a heavy chest pressure with exertion over the past couple of days. The pain eases with rest. 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 The intense pain began tonight while he was starting to have intimate relations with his partner. He took hydrocodone at home which was not helpful. Symptoms started about 45 minutes prior to arrival. He rates the pain as 8/10 at its worst and 3/10 at present. Patient is diaphoretic and appears uncomfortable on arrival. He has no known cardiac disease but he has risk factors including diabetes, hypertension, hyperlipidemia, and family history of heart disease. Patient was given aspirin during assessment. Nitroglycerin was not administered as he has recently taken Viagra. Allergies and Home Medications Allergies Coded Allergies: No Known Drug Allergies (Unverified , 11/12/15) Home Medications Hydrochlorothiazide 50 Mg Tablet, 50 MG PO DAILY, (Reported) Hydrocodone/Acetaminophen 1 Each Tablet, 1 EACH PO Q6H PRN for PAIN, #14 Prescribed by: NAY HATCH on 11/12/15 1200 Hydrocodone/Ibuprofen 1 Each Tablet, 1 EACH PO PRN, (Reported) Insulin Determir 1,000 Units/10 Ml Soln, 30 UNITS SQ HS, (Reported) Insulin Lispro 100 Unit/1 Ml Cartridge, 100 UNIT SQ, (Reported) SLIDING SCALE [Flexeril] , 10 MG PO Prescribed by: ANY HATCH on 11/12/15 1200 Review of Systems Constitutional: see HPI EENTM: No Symptoms Reported Respiratory: No Symptoms Reported Cardiovascular: See HPI Gastrointestinal: No Symptoms Reported Genitourinary: No Symptoms Reported Musculoskeletal: see HPI Skin: no symptoms reported Psychiatric/Neurological: No Symptoms Reported Endocrine: No Symptoms Reported Past Bzfazvb-Wdtwmv-Flziby Hx Patient Social History Alcohol Use: Occasionally Uses Recreational Drug Use: No Smoking Status: Never a Smoker Recent Foreign Travel: No Contact w/Someone Who Travel: No Recent Infectious Disease Expo: No Recent Hopitalizations: No Physical Abuse: No Sexual Abuse: No Mistreated: No Fear: No Seasonal Allergies Seasonal Allergies: No Surgeries History of Surgeries: Yes Surgeries: Abdominal (sleeve gastrectomy), Gallbladder Respiratory History of Respiratory Disorde: No Cardiovascular History of Cardiac Disorders: Yes Cardiac Disorders: High Cholesterol, Hypertension Neurological History of Neurological Disord: No Reproductive System Hx Reproductive Disorders: No Genitourinary History of Genitourinary Disor: No Gastrointestinal History of Gastrointestinal Di: No Musculoskeletal History of Musculoskeletal Dis: Yes Musculoskeletal Disorders: Chronic Back Pain Endocrine History of Endocrine Disorders: Yes Endocrine Disorders: Diabetes, Insulin dep HEENT History of HEENT Disorders: No Cancer History of Cancer: No Psychosocial History of Psychiatric Problem: No Suicide Risk Score: 0 Integumentary History of Skin or Integumenta: No Family Medical History Significant Family History: CAD Under 55 Years Old Physical Exam Vital Signs Vital Sign - Last 12Hours Capillary Refill : Less Than 3 Seconds General Appearance: WD/WN, Mild Distress HEENT: PERRL/EOMI, Normal ENT Inspection Neck: Normal Inspection Respiratory: Chest Non Tender, Lungs Clear, Normal Breath Sounds, No Accessory Muscle Use, No Respiratory Distress Cardiovascular: Regular Rate, Rhythm, No Edema, No Murmur Gastrointestinal: Normal Bowel Sounds, Non Tender, Soft Extremity: Normal Capillary Refill, Normal Inspection, No Calf Tenderness, No Pedal Edema Neurologic/Psychiatric: Alert, Oriented x3, No Motor/Sensory Deficits, Normal Mood/Affect, red leader II-XII Norm as Tested Skin: Normal Color, Diaphoresis Progress/Results/Core Measures Results/Orders Lab Results Laboratory Tests Test 09/29/17 23:46 Range/Units White Blood Count 8.0 4.3-11.0 10^3/uL Red Blood Count 5.58 4.35-5.85 10^6/uL Hemoglobin 16.9 13.3-17.7 G/DL Hematocrit 47 40-54 % Mean Corpuscular Volume 85 80-99 FL Mean Corpuscular Hemoglobin 30 25-34 PG Mean Corpuscular Hemoglobin Concent 36 32-36 G/DL Red Cell Distribution Width 12.4 10.0-14.5 % Platelet Count 209 130-400 10^3/uL Mean Platelet Volume 10.1 7.4-10.4 FL Neutrophils (%) (Auto) 46 42-75 % Lymphocytes (%) (Auto) 46 H 12-44 % Monocytes (%) (Auto) 7 0-12 % Eosinophils (%) (Auto) 1 0-10 % Basophils (%) (Auto) 0 0-10 % Neutrophils # (Auto) 3.7 1.8-7.8 X 10^3 Lymphocytes # (Auto) 3.7 1.0-4.0 X 10^3 Monocytes # (Auto) 0.5 0.0-1.0 X 10^3 Eosinophils # (Auto) 0.1 0.0-0.3 10^3/uL Basophils # (Auto) 0.0 0.0-0.1 10^3/uL Prothrombin Time 11.9 L 12.2-14.7 SEC INR Comment 0.9 0.8-1.4 Activated Partial Thromboplast Time 24 24-35 SEC D-Dimer < 0.27 0.00-0.49 UG/ML Sodium Level 139 135-145 MMOL/L Potassium Level 3.9 3.6-5.0 MMOL/L Chloride Level 102 98-107 MMOL/L Carbon Dioxide Level 18 L 21-32 MMOL/L Anion Gap 19 H 5-14 MMOL/L Blood Urea Nitrogen 16 7-18 MG/DL Creatinine 1.11 0.60-1.30 MG/DL Estimat Glomerular Filtration Rate > 60 BUN/Creatinine Ratio 14 Glucose Level 215 H 70-105 MG/DL Calcium Level 9.8 8.5-10.1 MG/DL Magnesium Level 2.2 1.8-2.4 MG/DL Total Bilirubin 0.5 0.1-1.0 MG/DL Aspartate Amino Transf (AST/SGOT) 33 5-34 U/L Alanine Aminotransferase (ALT/SGPT) 56 H 0-55 U/L Alkaline Phosphatase 99 40-136 U/L Myoglobin 59.7 10.0-92.0 NG/ML Troponin I < 0.30 <0.30 NG/ML Total Protein 7.8 6.4-8.2 GM/DL Albumin 4.5 3.2-4.5 GM/DL My Orders Orders - GIRISH TRINIDAD MD Aspirin Chewable Tablet (Baby Aspirin Ch (09/29/17 23:50) Cbc With Automated Diff (09/29/17 23:59) Magnesium (09/29/17 23:59) Ekg Tracing (09/29/17 23:59) Cardiac Profile 1 (09/29/17 23:59) Comprehensive Metabolic Panel (09/29/17 23:59) Myoglobin Serum (09/29/17 23:59) Protime With Inr (09/29/17 23:59) Partial Thromboplastin Time (09/29/17 23:59) O2 (09/29/17 23:59) Monitor-Rhythm Ecg Trace Only (09/29/17 23:59) Aspirin Chewable Tablet (Baby Aspirin Ch (09/30/17 00:00) Saline Lock/Iv-Start (09/29/17 23:59) Chest 1 View, Ap/Pa Only (09/30/17 00:01) Fibrin Degradation Products (09/30/17 00:04) Ketorolac Injection (Toradol Injection) (09/30/17 01:15) Medications Given in ED Current Medications Medications Dose Ordered Sig/Litzy Route Start Time Stop Time Status Last Admin Dose Admin Aspirin 324 mg ONCE ONCE PO 09/30/17 00:00 09/30/17 00:01 DC 09/29/17 23:52 324 MG Vital Signs/I&O Vital Sign - Last 12Hours 09/29/17 09/29/17 23:53 23:53 Temp 98.1 Pulse 111 Resp 20 B/P (MAP) 164/113 (130) Pulse Ox 98 O2 Delivery Room Air Room Air Blood Pressure Mean: 130 ECG Initial ECG Impression Date: Sep 29, 2017 Initial ECG Impression Time: 23:41 Initial ECG Rate: 105 Initial ECG Rhythm: S.Tach Initial ECG Intervals: Normal Comment Sinus tachycardia with no ST elevation or depression. No abnormal intervals or axis deviation. Diagnostic Imaging Diagonstic Imaging: Xray Plain Films/CT/US/NM/MRI: chest Comments Chest x-ray viewed by me. Report not yet available. No acute abnormalities appreciated. Departure Communication (Admissions) Time/Spoke to Admitting Phy: 01:[address] Paulson Time/Spoke to Consulting Phy: 01:05 Communication/Consulting Dr. Morrell Impression Impression: Primary Impression: Chest pain Qualified Codes: R07.9 - Chest pain, unspecified Disposition: ADMITTED INPATIENT Condition: Improved Admissions Decision to Admit Reason: Admit from ER (General) Decision to Admit/Date: Sep 30, 2017 Time/Decision to Admit Time: 01:05 Departure-Patient Inst. Referrals: SEAN FRANKLIN MD (PCP/Family) Primary Care Physician GIRISH TRINIDAD MD Sep 30, 2017 01:13
[2017-09-30] MEDS ORDERED: KETOROLAC 30 MG/ML VIAL IVP ONE (01:15)
[2017-09-30] MEDS ORDERED: CATHETER FLUSH 10 ML SYR IV PRN (02:45)
[2017-09-30] MEDS: fentaNYL INJECTION 100 MCG/2 ML AMP IV PRN ×3 (02:48→14:59)
[2017-09-30] MEDS: CATHETER FLUSH 10 ML SYR IV SCH ×2 (05:56→14:34)
[2017-09-30 06:40] LABS: CHOLESTEROL 153 MG/DL (< 200); DIRECT LDL 92 MG/DL (1-129); TRIGLYCERIDES 153 MG/DL (<150); VLDL CHOLESTEROL 31 MG/DL (5-40)
--- NOTE | 2017-09-30 06:45 | Diagnostic Imaging Report ---
INDICATION: Intermittent chest pain for the past two days. TECHNIQUE: Single-view chest 12:05 AM. CORRELATION STUDY: 08/11/2007. FINDINGS: Heart size is enlarged. Vasculature within normal limits. Slight asymmetric elevation of the right diaphragm. Lung jenkins overall clear. IMPRESSION: Heart size enlarged without evidence for overt failure. Dictated by: Dictated on workstation # [id number]
[2017-09-30 06:50] LABS: TROPONIN I < 0.30 NG/ML (<0.30)
[2017-09-30] MEDS ORDERED: INFLUENZA TRIvalent 2017-2018 0.5 ML/45 MCG SYR IM ONE (07:45)
[2017-09-30] MEDS ORDERED: CYCL10TA9 PO (07:49)
[2017-09-30] MEDS ORDERED: SILD50TA PO (07:49)
[2017-09-30] MEDS ORDERED: LOVA40TA2 PO (07:49)
[2017-09-30] MEDS ORDERED: METF1000 PO (07:49)
[2017-09-30] MEDS ORDERED: INSU100V SC (07:49)
[2017-09-30] MEDS ORDERED: GABA-486 PO (08:07)
[2017-09-30] MEDS ORDERED: NAPR220T66 PO (08:08)
[2017-09-30] MEDS ORDERED: GUAI600T43 PO (08:08)
[2017-09-30] MEDS ORDERED: HYDR-3816 PO (08:10)
[2017-09-30] MEDS ORDERED: AMOX500C2 PO (08:10)
--- NOTE | 2017-09-30 08:29 | Consultation-Cardiology ---
HPI-Cardiology Cardiology Consultation Date of Consultation 09/30/17 Date of Admission Time Seen by Provider: 08:25 Indication: Chest pain HPI 47 years old gentleman with strong family history of heart disease, history of diabetes mellitus, hypertension hyperlipidemia, has been having recurrent episode of chest pain described it as sharp back pain then radiating all over his chest associated with shortness of breath and diaphoresis, usually with exertion relieved by rest. Has been occurring more frequently until last night when the chest pain became worse and he came to the emergency room for evaluation. Did not receive nitroglycerin. Currently chest pain-free. Denied any palpitation, syncope or near syncopal episodes. Denied any claudications. Has been compliant with his medications. Home Medications & Allergies Allergies: Coded Allergies: No Known Drug Allergies (Unverified , 11/12/15) Home Medication List Reviewed: Yes AUL-Kxtfps-Ljpzmi Hx Patient Social History Marital Status: Employed/Student: employed Alcohol Use: Occasionally Uses Recreational Drug Use: No Smoking Status: Never a Smoker Recent Foreign Travel: No Recent Infectious Disease Expo: No Recent Hopitalizations: No Physical Abuse Screen: No Sexual Abuse: No Past Medical History Past medical history is described below Family Medical History Significant Family History: CAD Under 55 Years Old Family Medical Hx Father has history of heart disease, grandfather had history of heart attack Constitutional: no symptoms reported, see HPI EENTM: see HPI, no symptoms reported Respiratory: see HPI, cough, dyspnea on exertion, No hemoptysis, No orthopnea, No phlegm, No short of breath, No stridor, No wheezing, No other Cardiovascular: see HPI, chest pain, No edema, No Hx of Intervention, No palpitations, No syncope, No vascular heart diseas, No other Gastrointestinal: no symptoms reported, see HPI Genitourinary: see HPI, frequency Musculoskeletal: see HPI, back pain Skin: no symptoms reported, see HPI Psychiatric/Neurological: No Symptoms Reported, See HPI Reviewed Test Results Reviewed Test Results Lab Laboratory Tests Test 09/29/17 23:46 09/30/17 05:40 Range/Units White Blood Count 8.0 4.3-11.0 10^3/uL Red Blood Count 5.58 4.35-5.85 10^6/uL Hemoglobin 16.9 13.3-17.7 G/DL Hematocrit 47 40-54 % Mean Corpuscular Volume 85 80-99 FL Mean Corpuscular Hemoglobin 30 25-34 PG Mean Corpuscular Hemoglobin Concent 36 32-36 G/DL Red Cell Distribution Width 12.4 10.0-14.5 % Platelet Count 209 130-400 10^3/uL Mean Platelet Volume 10.1 7.4-10.4 FL Neutrophils (%) (Auto) 46 42-75 % Lymphocytes (%) (Auto) 46 H 12-44 % Monocytes (%) (Auto) 7 0-12 % Eosinophils (%) (Auto) 1 0-10 % Basophils (%) (Auto) 0 0-10 % Neutrophils # (Auto) 3.7 1.8-7.8 X 10^3 Lymphocytes # (Auto) 3.7 1.0-4.0 X 10^3 Monocytes # (Auto) 0.5 0.0-1.0 X 10^3 Eosinophils # (Auto) 0.1 0.0-0.3 10^3/uL Basophils # (Auto) 0.0 0.0-0.1 10^3/uL Prothrombin Time 11.9 L 12.2-14.7 SEC INR Comment 0.9 0.8-1.4 Activated Partial Thromboplast Time 24 24-35 SEC D-Dimer < 0.27 0.00-0.49 UG/ML Sodium Level 139 135-145 MMOL/L Potassium Level 3.9 3.6-5.0 MMOL/L Chloride Level 102 98-107 MMOL/L Carbon Dioxide Level 18 L 21-32 MMOL/L Anion Gap 19 H 5-14 MMOL/L Blood Urea Nitrogen 16 7-18 MG/DL Creatinine 1.11 0.60-1.30 MG/DL Estimat Glomerular Filtration Rate > 60 BUN/Creatinine Ratio 14 Glucose Level 215 H 70-105 MG/DL Calcium Level 9.8 8.5-10.1 MG/DL Magnesium Level 2.2 1.8-2.4 MG/DL Total Bilirubin 0.5 0.1-1.0 MG/DL Aspartate Amino Transf (AST/SGOT) 33 5-34 U/L Alanine Aminotransferase (ALT/SGPT) 56 H 0-55 U/L Alkaline Phosphatase 99 40-136 U/L Myoglobin 59.7 10.0-92.0 NG/ML Troponin I < 0.30 < 0.30 <0.30 NG/ML Total Protein 7.8 6.4-8.2 GM/DL Albumin 4.5 3.2-4.5 GM/DL Triglycerides Level 153 H <150 MG/DL Cholesterol Level 153 < 200 MG/DL LDL Cholesterol Direct 92 1-129 MG/DL VLDL Cholesterol 31 5-40 MG/DL HDL Cholesterol 29 L 40-60 MG/DL Physical Exam Vital Signs Vital Sign - Last 12Hours Capillary Refill : Less Than 3 Seconds General Appearance: No Apparent Distress, WD/WN Eyes: Bilateral Eye Normal Inspection, Bilateral Eye PERRL, Bilateral Eye EOMI HEENT: PERRL/EOMI, TMs Normal, Normal ENT Inspection, Pharynx Normal Neck: Full Range of Motion, Normal Inspection, Non Tender, Supple, Carotid Bruit Respiratory: Chest Non Tender, Lungs Clear, Normal Breath Sounds, No Accessory Muscle Use, No Respiratory Distress Cardiovascular: Regular Rate, Rhythm, No Edema, No Gallop, No JVD, No Murmur, Normal Peripheral Pulses Gastrointestinal: Normal Bowel Sounds, No Organomegaly, No Pulsatile Mass, Non Tender, Soft Back: Normal Inspection, No CVA Tenderness, No Vertebral Tenderness Extremity: Normal Capillary Refill, Normal Inspection, Normal Range of Motion, Non Tender, No Calf Tenderness, No Pedal Edema Neurologic/Psychiatric: Alert, Oriented x3, No Motor/Sensory Deficits, Normal Mood/Affect Skin: Normal Color, Warm/Dry Lymphatic: No Adenopathy A/P-Cardiology Admission Diagnosis Chest pain nonspecific etiology Dyspnea on exertion Hypertension Hyperlipidemia Diabetes mellitus Assessment/Plan Chest pain nonspecific etiology, resembling angina, EKG and cardiac enzymes did not show any acute abnormality. Patient has multiple risk factors suggestive of coronary artery disease, discussed with him the management plan, I'll continue monitoring him, planning to evaluate echocardiogram and stress test. Dyspnea on exertion, worsening over the past 3 days. Management as described above Hypertension, controlled, monitor blood pressure Hyperlipidemia, good control on lovastatin. Continue to monitor Diabetes mellitus, followed and managed by primary care physician Obesity, BMI 34, had history of gastric sleeve surgery done 3 years ago without success, had long discussion about diet and exercise. Family history of heart disease. Clinical Quality Measures AMI/AHF: ASA po Prior to arrival: No DVT/VTE Risk/Contraindication: Risk Factor Score Per Nursin RFS Level Per Nursing on Admit: 2=Moderate ALIREZA EVERETT MD Sep 30, 2017 08:29
[2017-09-30] MEDS ORDERED: NS IV 1000 ML 1,000 ML IV SCH ×3 (08:30→11:45)
[2017-09-30] MEDS ORDERED: ASPIRIN E.C. 325 MG (ECOTRIN) TABLET PO SCH (09:00)
[2017-09-30] MEDS ORDERED: NS IV 1000 ML 1,000 ML ONE (09:29)
[2017-09-30] MEDS ORDERED: HYDR-3812 PO (09:40)
[2017-09-30] MEDS ORDERED: HEParin (CATH LAB) 2,000 ML IV ONE (10:03)
[2017-09-30] MEDS ORDERED: LIDOCAINE 1% INJ 50 ML (XYLOCAINE) VIAL ONE (10:03)
[2017-09-30] MEDS ORDERED: MIDAZOLAM 2 MG/2 ML (VERSED) VIAL ONE (10:42)
[2017-09-30] MEDS ORDERED: fentaNYL INJECTION 100 MCG/2 ML AMP ONE (10:42)
[2017-09-30] MEDS ORDERED: HEParin 1000 UNIT/ML (10ML VIAL) FOR BOLUS ONE (11:12)
--- NOTE | 2017-09-30 11:24 | Cardiac Procedure Note-CS/ASA ---
Pre-Procedure Note Pre-Op Procedure Note H&P Reviewed The H&P was reviewed, patient examined and no changes noted. Date H&P Reviewed: Sep 30, 2017 Time H&P Reviewed: 11:24 Conscious Sedation Pre-Proced Time Reviewed: 11:24 ASA Class: 3 Airway Mallampati Classification: ([place] appropriate class) I. II. III, IV Lungs Heart ASA score ASA 1: a normal healthy patient ASA 2: a patient with a mild systemic disease (mid diabetes, controlled hypertension, obesity x ASA 3: a patient with a severe systemic disease that limits activity (angina , COPD, prior Myocardial infarction) ASA 4: a patient with an incapacitating disease that is a constant threat to life (CHF, renal failure) ASA 5: a moribund patient not expected to survive 24 hrs. (ruptured aneurysm) ASA 6: a declared brain patient whose organs are being harvested. For emergent operations, add the letter E after the classification Grade 3 Sedation Plan: Analgesia, Amnesia, Plan communicated to team members, Discussed options with patient/fam, Discussed risks with patient/fam Note The patient is an appropriate candidate to undergo the planned procedure, sedation, and anesthesia. The patient immediately re-assessed prior to indication. ALIREZA EVERETT MD Sep 30, 2017 11:24
[2017-09-30] MEDS ORDERED: PATIENT MAY USE OWN MEDS, ALL PO SCH (11:30)
--- NOTE | 2017-09-30 11:34 | Cardiac Cath Report ---
Cardiac Cath Report Physician (s)/Traffic Signal Mechanic (s) Physician ALIREZA EVERETT MD Pre-Procedure Diagnosis Pre-Procedure Diagnosis: Unstable angina Post-Procedure Note Procedure Start Date: Sep 30, 2017 Name of Procedure: Left heart catheter, left ventriculogram, 89283 Aortic arch angiogram, 42007 Findings/Procedure Note PROCEDURE NOTE: After explaining the procedure to the patient, all pros and cons were explained, all questions were answered. The patient signed the consent and then she was placed on the cardiac catheterization laboratory. The patient was placed on the cardiac catheterization laboratory. Groin was prepped SL fashion local anesthesia was used. Sheath placed in the right femoral artery. Teri right and left catheter were used to access the coronary system. Pigtail was used to access the left ventricular cavity. Left ventriculogram was done Aortic arch angiogram was done At the end of the procedure the sheath was removed. Closure device was used FINDINGS: Hemodynamics LV 118/13, and diastolic pressure of 13 Aorta 116/77, mean of 94 ANATOMY: Left Main is free of obstructive disease Left Anterior Descending has long segment of severe stenosis/subtotal occlusion Left Circumflex is moderate in size, first obtuse marginal branch has proximal 95 percent stenosis, distally circumflex has 80 percent stenosis Right Coronory Artery is [id number] in size, nondominant artery, subtotally occluded at the midportion LV Gram is normal in size with normal contractile to estimate ejection fraction 60 percent Aorta evaluation with aortic arch angiogram showed normal aortic arch, no dissection or aneurysm, normal origin of the great neck vessels CONCLUSION: 1. Severe triple vessel disease, long segment of severe stenosis in the mid LAD , severe stenosis at the proximal first obtuse marginal branch and distal circumflex artery, subtotal occlusion at the midright coronary artery 2. Preserved left ventricular systolic function with estimated ejection fraction 60 percent 3. Normal aortic arch and great neck vessels DISCUSSION AND RECOMMENDATION: Patient will be transferred for CABG Anesthesia Type: Conscious Sedation Estimated blood loss (mL): 10 ml Contrast Amount: 80 ml Total Radiation Dose: 771 mGy Post-Procedure Diagnosis Post-operative diagnosis: Unstable angina Coronary artery disease Hypertension Hyperlipidemia ALIREZA EVERETT MD Sep 30, 2017 11:34
--- NOTE | 2017-09-30 12:05 | Short Stay Summary ---
History of Present Illness History of Present Illness Reason for visit/HPI 47 years old gentleman with strong family history of heart disease, history of diabetes mellitus, hypertension hyperlipidemia, has been having recurrent episode of chest pain described it as sharp back pain then radiating all over his chest associated with shortness of breath and diaphoresis, usually with exertion relieved by rest. Has been occurring more frequently until last night when the chest pain became worse and he came to the emergency room for evaluation. Did not receive nitroglycerin. Currently chest pain-free. Denied any palpitation, syncope or near syncopal episodes. Denied any claudications. Has been compliant with his medications. Date of Admission Sep 30, 2017 at 01:10 Date of Discharge September 30, 2017 Time Seen by Provider: 12:02 Attending Physician Thea Paulson MD Admitting Physician Clare Monge MD Consult Allergies and Home Medications Allergies Coded Allergies: No Known Drug Allergies (Unverified , 11/12/15) Home Medications Amoxicillin 500 Mg Capsule, 500 MG PO TID for 7 Days, (Reported) #21 CAPSULES FILLED 09-08-17 Cyclobenzaprine HCl 10 Mg Tablet, 10 MG PO BID PRN for MUSCLE SPASMS, (Reported) Gabapentin 100 Mg Capsule, 100 MG PO TID, (Reported) LAST FILLED #270 06-06-17 Guaifenesin 600 Mg Tab.er.12h, 600 MG PO BID PRN for CONGESTION, (Reported) Hydrochlorothiazide 50 Mg Tablet, 50 MG PO HS, (Reported) Hydrocodone/Acetaminophen 1 Each Tablet, 1 TAB PO Q6H PRN for PAIN-MODERATE, ( Reported) Insulin Determir 1,000 Units/10 Ml Soln, 30 UNITS SQ HS, (Reported) Insulin Lispro 100 Unit/1 Ml Vial, 30 UNITS SC AC, (Reported) Lovastatin 40 Mg Tablet, 40 MG PO HS, (Reported) Metformin HCl 1,000 Mg Tablet, 1,000 MG PO BID WITH MEALS, (Reported) Naproxen Sodium 220 Mg Tablet, 440 MG PO BID PRN for BACK PAIN, (Reported) Sildenafil Citrate 50 Mg Tablet, 50 MG PO DAILY PRN for ED, (Reported) Past Xhytpsg-Qcwdnc-Rtpide Hx Patient Social History Marrital Status: Employed/Student: employed Alcohol Use: Occasionally Uses Recreational Drug Use: No Smoking Status: Never a Smoker Physical Abuse Screen: No Sexual Abuse: No Recent Foreign Travel: No Contact w/other who traveled: No Recent Hopitalizations: No Recent Infectious Disease Expo: No Seasonal Allergies Seasonal Allergies: No Surgeries Yes Abdominal (sleeve gastrectomy), Gallbladder Respiratory No Cardiovascular Yes High Cholesterol, Hypertension Neurological No Reproductive System Hx Reproductive Disorders: No Genitourinary No Gastrointestinal No Musculoskeletal Yes Chronic Back Pain Endocrine History of Endocrine Disorders: Yes Endocrine Disorders: Diabetes, Insulin dep HEENT History of HEENT Disorders: No Cancer No Psychosocial History of Psychiatric Problem: No Integumentary History of Skin or Integumenta: No Family Medical History Significant Family History: CAD Under 55 Years Old Constitutional: see HPI EENTM: see HPI Respiratory: see HPI, cough, dyspnea on exertion Cardiovascular: see HPI, chest pain Gastrointestinal: see HPI Genitourinary: see HPI Musculoskeletal: see HPI, back pain Skin: see HPI Psychiatric/Neurological: No Symptoms Reported, See HPI Physical Exam Vital Signs Vital Sign - Last 12Hours Capillary Refill : Less Than 3 Seconds General Appearance: No Apparent Distress, WD/WN Eyes: Bilateral Eye Normal Inspection, Bilateral Eye PERRL, Bilateral Eye EOMI HEENT: PERRL/EOMI, TMs Normal, Normal ENT Inspection, Pharynx Normal Neck: Full Range of Motion, Normal Inspection, Non Tender, Supple, Carotid Bruit Respiratory: Chest Non Tender, Lungs Clear, Normal Breath Sounds, No Accessory Muscle Use, No Respiratory Distress Cardiovascular: Regular Rate, Rhythm, No Edema, No Gallop, No JVD, No Murmur, Normal Peripheral Pulses Gastrointestinal: Normal Bowel Sounds, No Organomegaly, No Pulsatile Mass, Non Tender, Soft Back: Normal Inspection, No CVA Tenderness, No Vertebral Tenderness Extremity: Normal Capillary Refill, Normal Inspection, Normal Range of Motion, Non Tender, No Calf Tenderness, No Pedal Edema Neurologic/Psychiatric: Alert, Oriented x3, No Motor/Sensory Deficits, Normal Mood/Affect Skin: Normal Color, Warm/Dry Lymphatic: No Adenopathy Clinical Quality Measures AMI/AHF: ASA po Prior to arrival: No DVT/VTE Risk/Contraindication: Risk Factor Score Per Nursin RFS Level Per Nursing on Admit: 2=Moderate Short Stay Diagnosis Discharge Diagnosis-Short Stay Admission Diagnosis: Chest pain nonspecific etiology Dyspnea on exertion Hypertension Hyperlipidemia Diabetes mellitus Final Discharge Diagnosis: unstable angina Dyspnea on exertion Hypertension Hyperlipidemia Diabetes mellitus Conclusion Labs Laboratory Tests 09/29/17 23:46: White Blood Count 8.0, Red Blood Count 5.58, Hemoglobin 16.9, Hematocrit 47, Mean Corpuscular Volume 85, Mean Corpuscular Hemoglobin 30, Mean Corpuscular Hemoglobin Concent 36, Red Cell Distribution Width 12.4, Platelet Count 209, Mean Platelet Volume 10.1, Neutrophils (%) (Auto) 46, Lymphocytes (%) (Auto) 46H , Monocytes (%) (Auto) 7, Eosinophils (%) (Auto) 1, Basophils (%) (Auto) 0, Neutrophils # (Auto) 3.7, Lymphocytes # (Auto) 3.7, Monocytes # (Auto) 0.5, Eosinophils # (Auto) 0.1, Basophils # (Auto) 0.0, Prothrombin Time 11.9L, INR Comment 0.9, Activated Partial Thromboplast Time 24, D-Dimer < 0.27, Sodium Level 139, Potassium Level 3.9, Chloride Level 102, Carbon Dioxide Level 18L, Anion Gap 19H, Blood Urea Nitrogen 16, Creatinine 1.11, Estimat Glomerular Filtration Rate > 60, BUN/Creatinine Ratio 14, Glucose Level 215H, Calcium Level 9.8, Magnesium Level 2.2, Total Bilirubin 0.5, Aspartate Amino Transf (AST /SGOT) 33, Alanine Aminotransferase (ALT/SGPT) 56H, Alkaline Phosphatase 99, Myoglobin 59.7, Troponin I < 0.30, Total Protein 7.8, Albumin 4.5 09/30/17 05:40: Troponin I < 0.30, Triglycerides Level 153H, Cholesterol Level 153, LDL Cholesterol Direct 92, VLDL Cholesterol 31, HDL Cholesterol 29L Conclusion/Plan Chest pain nonspecific etiology, resembling angina, EKG and cardiac enzymes did not show any acute abnormality. Patient has multiple risk factors suggestive of coronary artery disease, discussed with him the management plan, C the stress echo which was abnormal, cardiac catheterization showed severe multivessel disease, arrangements were made to transfer the patient for CABG Coronary artery disease, cardiac catheterization showed severe multivessel disease with preserved left ventricular function, arrangements were made to transfer for evaluation for CABG Dyspnea on exertion, worsening over the past 3 days. Management as described above Hypertension, controlled, monitor blood pressure Hyperlipidemia, good control on lovastatin. Continue to monitor Diabetes mellitus, followed and managed by primary care physician Obesity, BMI 34, had history of gastric sleeve surgery done 3 years ago without success, had long discussion about diet and exercise. Family history of heart disease. ALIREZA EVERETT MD Sep 30, 2017 12:05
--- NOTE | 2017-09-30 14:03 | Discharge Inst-Post CATH ---
Discharge Inst-CATH Post Cardiac Cath D/C Inst Follow Up/Plan Appointment with Dr Morrell's office in 2-4 weeks Hold Metformin for 48 hours CARDIAC CATH DISCHARGE INSTRUCTIONS *Hold Metformin for 48 hours post heart cath. ACTIVITY * Go Home directly and rest. * Limit activity of the leg (or wrist if it was used) for 7 days including aerobics, swimming, jogging, bicycling, etc. * Restrict stair-climbing for 7 days if possible, if not, climb up with your non -cath leg, then bring together on the same step. * Avoid lifting, pushing, pulling or excessive movement of the affected extremity for 7 days. * Customary sexual activity may be resumed after 2 days-use caution not to use a position that strains or causes pain to the affected extremity. * No driving for 24 hours. * NO SMOKING. * Avoid straining for bowel movements for 7 days. * Gentle walking on level ground is allowed. * Returning to work will depend on the type of procedure and the results. Your doctor will discuss this with you. CALL YOUR DOCTOR FOR ANY OF THE FOLLOWING: *If bleeding from the puncture site occurs- Apply gentle pressure to site with clean cloth and call your doctor or EMS. * If a knot or lump forms under the skin, increases in size, or causes pain. * If bruising appears to be worsening or moving further down your leg instead of disappearing. * Temperature above 101 F. CARE OF YOUR GROIN INCISION; * Bruising or purple discoloration of the skin near the puncture site is common. * You may shower only, no bathtub bathing for 5 days. Be careful to avoid slipping as your leg may feel stiff. * If a closure device was used on your femoral artery, please see the attached guide regarding care of the device and your leg. * REMOVE the dressing from your groin the next day after your procedure in the shower. CARE OF YOUR WRIST INCISION; * Bruising or purple discoloration of the skin near the puncture site is common. * You may shower. * DO NOT submerge wrist. * Remove dressing in 24 hours. ALIREZA MORRELL MD Sep 30, 2017 14:03
--- NOTE | 2017-10-03 07:37 | STRESS TEST ---
DATE OF SERVICE: 09/30/2017 EXERCISE STRESS ECHOCARDIOGRAM Baseline heart rate is 84. Baseline blood pressure 140/86. Baseline EKG is sinus rhythm with no ischemic changes. In summary, the patient started exercising with a baseline heart rate, blood pressure and EKG mentioned above. He was able to exercise for 5 minutes and 45 seconds on standard Kunal protocol, had leg cramps, minimal nondiagnostic EKG changes. Blood pressure 172/77. During recovery, heart rate and blood pressure returned to baseline. EKG returned to baseline. Echocardiographic images were acquired and reviewed in the parasternal long axis, parasternal short axis, apical four chamber and apical two chamber views. Review of the images showed exercise induced hypokinesia involving the anterior wall, anterior septum and anterolateral wall. CONCLUSION: 1. Fair exercise tolerance a total of 5 minutes and 45 seconds on standard Kunal protocol, total of 7.1 METS achieving 85% of maximum expected heart rate. 2. Significant leg cramps with exertion resolved by rest. 3. Minimal nondiagnostic EKG changes with exercise returned to baseline during recovery. 4. Exercise induced hypokinesia involving the anterior wall, anterior septum and anterolateral wall. Job ID: [id number] DocumentID: [id number] Dictated Date: 09/30/2017 12:33:20 Spinning Mule Tender Date: 09/30/2017 13:52:05 Dictated By: ALIREZA EVERETT MD
== END 2017-09-30 15:10 | disposition short-term general hospital (02) ==
LOC: EDUNIT# 23:40 → ER 23:41 → UNDOADMOB 09-30 01:10 → 4TH 09-30 01:10 → CATH 09-30 01:50 → 4TH 09-30 01:50 → ICU 09-30 11:45 → 4TH 09-30 11:45 → CATH 09-30 15:10 → UNDODISOB 09-30 15:10
PROVIDERS: ATTEND Family Medicine
DX: I25.110 Atherosclerotic heart disease of native coronary artery with unstable angina pectoris (principal); R06.00 Dyspnea, unspecified; I10 Essential (primary) hypertension; E78.5 Hyperlipidemia, unspecified; E11.9 Type 2 diabetes mellitus without complications; E66.9 Obesity, unspecified; Z68.34 Body mass index [BMI] 34.0-34.9, adult; Z82.49 Family history of ischemic heart disease and other diseases of the circulatory system; Z79.4 Long term (current) use of insulin; Z79.899 Other long term (current) drug therapy; Z98.84 Bariatric surgery status
CPT/HCPCS: 36221; 36415; 71010; 80053; 80061; 83735; 83874; 84484; 85025; 85379; 85610; 85730; 93005; 93041; 93306; 93458; 96374

== ENCOUNTER → 2017-10-18 | Outpatient (CLI) | payer BC ==
[~2017-10-18] MED LIST changes: +ACHD5005 PO; +AMOX500C2 PO; +CYCL10TA9 PO; +GABA-486 PO; +GUAI600T43 PO; +HYDR-3816 PO; +INSU100V SC; +LOVA40TA2 PO; +METF1000 PO; +NAPR220T66 PO; +SILD50TA PO
[2017-10-18 11:52] LABS: HEMOGLOBIN 13.6 G/DL (13.3-17.7); MEAN PLATELET VOLUME 9.2 FL (7.4-10.4); RED BLOOD COUNT 4.54 10^6/uL (4.35-5.85); RED CELL DISTRIBUTION WIDTH 12.6 % (10.0-14.5); WHITE BLOOD COUNT 7.9 10^3/uL (4.3-11.0)
[2017-10-18 12:06] LABS: BUN/CREATININE RATIO 13; CALCIUM 9.3 MG/DL (8.5-10.1); CARBON DIOXIDE 24 MMOL/L (21-32); CHLORIDE 102 MMOL/L (98-107); CREATININE SERUM 0.87 MG/DL (0.60-1.30); GFR ESTIMATED > 60; GLUCOSE 106 MG/DL (70-105); PHOSPHORUS 3.6 MG/DL (2.3-4.7); POTASSIUM 4.6 MMOL/L (3.6-5.0); SODIUM 140 MMOL/L (135-145)
== END ==
LOC: HH 07:00
PROVIDERS: ATTEND Thoracic Surgery (Cardiothoracic Vascular Surgery)
DX: E11.9 Type 2 diabetes mellitus without complications (principal); Z95.1 Presence of aortocoronary bypass graft
CPT/HCPCS: 80069; 85027

== ENCOUNTER → 2017-11-09 | Outpatient (CLI) | payer OTHER ==
--- NOTE | 2017-11-09 14:42 | Diagnostic Imaging Report ---
INDICATION: Postoperative evaluation. COMPARISON: 09/30/2017. FINDINGS: Two views of the chest are obtained. Heart size is normal. The pulmonary vessels appear unremarkable. There are new postoperative changes in the mediastinum. There is no pneumothorax, mediastinal widening, or pleural fluid demonstrated. The lungs are clear. There are degenerative changes in the spine. IMPRESSION: No acute abnormality is demonstrated. Dictated by: Dictated on workstation # [id number]
== END ==
LOC: RAD 12:24
PROVIDERS: ATTEND Nurse Practitioner
DX: Z48.812 Encounter for surgical aftercare following surgery on the circulatory system (principal); Z95.1 Presence of aortocoronary bypass graft
CPT/HCPCS: 71046

== ENCOUNTER → 2017-11-30 | Outpatient (CLI) | payer OTHER ==
[~2017-11-30] MED LIST changes: +HYDR-34 PO; -HYDR-3816 PO
== END ==
LOC: WOUNDCARE 09:25
PROVIDERS: ATTEND Surgery
DX: E11.621 Type 2 diabetes mellitus with foot ulcer (principal); L97.512 Non-pressure chronic ulcer of other part of right foot with fat layer exposed; L97.521 Non-pressure chronic ulcer of other part of left foot limited to breakdown of skin; L03.115 Cellulitis of right lower limb; E11.42 Type 2 diabetes mellitus with diabetic polyneuropathy
CPT/HCPCS: 11042; 97597

== ENCOUNTER → 2017-11-30 | Outpatient (CLI) | payer OTHER ==
--- NOTE | 2017-11-30 13:34 | Diagnostic Imaging Report ---
EXAMINATION: Bilateral foot. INDICATION: Bilateral foot ulcers. FINDINGS: Three views of each foot were obtained. There are no prior studies available for comparison. Reportedly, the patient has ulcers along the plantar aspect of each great toe. Radiopaque markers are placed over the areas of ulceration. The areas of ulceration are difficult to appreciate on this study. There is no evidence for bony destruction to suggest osteomyelitis. There is no fracture or acute bony abnormality of either foot. There is a fairly well-circumscribed area of increased density about the mid shaft of the proximal phalanx of the second digit of the right foot. This is most likely a sequela of prior trauma. There is also a calcaneal spur on the right and there are calcified enthesophytes along the posterior aspects of each calcaneus. IMPRESSION: 1. There is no evidence for an acute bony abnormality. In particular, there is no sign of bony destruction of either great toe to suggest osteomyelitis. If further imaging is desired, however, then either a three-phase nuclear medicine bone scan or MRI will be recommended. 2. There is no acute bony abnormality identified, but there does appear to be a healed fracture of the mid shaft of the proximal phalanx of the second digit of the right foot. 3. There is a calcaneal spur on the right. Dictated by: Dictated on workstation # [id number]
== END ==
LOC: RAD 12:14
PROVIDERS: ATTEND Surgery
DX: E11.621 Type 2 diabetes mellitus with foot ulcer (principal); L97.519 Non-pressure chronic ulcer of other part of right foot with unspecified severity; L97.529 Non-pressure chronic ulcer of other part of left foot with unspecified severity; M77.31 Calcaneal spur, right foot

== ENCOUNTER → 2017-12-07 | Outpatient (CLI) | payer OTHER | LOC: WOUNDCARE 09:54 | PROVIDERS: ATTEND Surgery | DX: E11.621 Type 2 diabetes mellitus with foot ulcer (principal); L97.512 Non-pressure chronic ulcer of other part of right foot with fat layer exposed; L97.521 Non-pressure chronic ulcer of other part of left foot limited to breakdown of skin; E11.42 Type 2 diabetes mellitus with diabetic polyneuropathy | CPT/HCPCS: 11042; 87070; 87075; 87205 ==

== ENCOUNTER → 2017-12-14 | Outpatient (CLI) | payer OTHER | LOC: WOUNDCARE 09:44 | PROVIDERS: ATTEND Surgery | DX: E11.621 Type 2 diabetes mellitus with foot ulcer (principal); L97.512 Non-pressure chronic ulcer of other part of right foot with fat layer exposed; E11.42 Type 2 diabetes mellitus with diabetic polyneuropathy | CPT/HCPCS: 11042 ==

== ENCOUNTER → 2017-12-21 | Outpatient (CLI) | payer OTHER | LOC: WOUNDCARE 09:38 | PROVIDERS: ATTEND Surgery | DX: E11.621 Type 2 diabetes mellitus with foot ulcer (principal); L97.512 Non-pressure chronic ulcer of other part of right foot with fat layer exposed; E11.42 Type 2 diabetes mellitus with diabetic polyneuropathy | CPT/HCPCS: 11042 ==

== ENCOUNTER → 2017-12-28 | Outpatient (CLI) | payer OTHER | LOC: WOUNDCARE 08:51 | PROVIDERS: ATTEND Surgery | DX: E11.621 Type 2 diabetes mellitus with foot ulcer (principal); E11.42 Type 2 diabetes mellitus with diabetic polyneuropathy; L97.512 Non-pressure chronic ulcer of other part of right foot with fat layer exposed | CPT/HCPCS: 11042 ==

== ENCOUNTER → 2018-01-06 | Outpatient (CLI) | payer OTHER | LOC: WOUNDCARE 10:17 | PROVIDERS: ATTEND Surgery | DX: E11.621 Type 2 diabetes mellitus with foot ulcer (principal); E11.42 Type 2 diabetes mellitus with diabetic polyneuropathy; L97.512 Non-pressure chronic ulcer of other part of right foot with fat layer exposed | CPT/HCPCS: 11042 ==

== ENCOUNTER → 2018-01-13 | Outpatient (CLI) | payer OTHER | LOC: WOUNDCARE 08:13 | PROVIDERS: ATTEND Surgery | DX: E11.621 Type 2 diabetes mellitus with foot ulcer (principal); E11.42 Type 2 diabetes mellitus with diabetic polyneuropathy; L97.512 Non-pressure chronic ulcer of other part of right foot with fat layer exposed | CPT/HCPCS: 99212 ==

== ENCOUNTER 2018-07-11 05:39 | Outpatient (CLI) | payer OTHER ==
[~2018-07-11] VITALS: Ht 188 cm; Wt 120.2 kg
[~2018-07-11 05:39] MED LIST changes: +HYDR-4227 PO; -HYDR-756 PO; +METF-399 PO; -METF1000 PO
[2018-07-11] MEDS ORDERED: ESCI10TA PO (14:01)
[2018-07-11] MEDS ORDERED: METO-387 PO (14:01)
[2018-07-11] MEDS ORDERED: METF-397 PO (14:01)
== END 2018-07-11 14:08 | disposition home or self-care (01) ==
LOC: PREOP 05:39
PROVIDERS: ATTEND Surgery
DX: Z01.818 Encounter for other preprocedural examination (principal)

== ENCOUNTER → 2019-06-20 | Outpatient (CLI) | payer BC, OTHER ==
[~2019-06-20] MED LIST changes: +CATHETER FLUSH 10 ML SYR IV PRN; +ESCI10TA PO; +METF-397 PO; +METO-387 PO
[2019-06-20 12:58] VITALS: BP 153/84
[2019-06-20 13:17] VITALS: BP 226/78
--- NOTE | 2019-06-20 19:35 | STRESS TEST ---
DATE OF SERVICE: 06/20/2019 EXERCISE MYOVIEW STRESS TEST REPORT REFERRING PHYSICIAN: Dr. Monge. Baseline heart rate is 84, baseline blood pressure 149/83. Baseline EKG is sinus rhythm with no ischemic changes. In summary, the patient was injected with 10.87 mCi of technetium-99 Myoview and the resting images were obtained. Then, the patient started exercising with a baseline heart rate, blood pressure and EKG mentioned above. The patient was able to exercise for 6 minutes 30 seconds on standard Kunal protocol. With peak exercise level, EKG was showing minimal nondiagnostic changes. Blood pressure was 235/85. The patient was injected with 29.8 mCi of technetium-99 Myoview at the peak stress level. During recovery, heart rate and blood pressure returned to baseline. EKG returned to baseline. The patient had some calf pain during exercise. The resting and stress images were reviewed and compared in the short axis, horizontal long axis, and vertical long axis views. Review of the images showed diaphragmatic attenuation with decreased uptake at the mid to apical inferior wall with mild reversibility. SSS is 4, SDS is 4, TID value 0.99. On the gated images, the left ventricle appeared to be in normal size with normal contractility, mild hypokinesia at the anteroseptum and inferoseptum with calculated ejection fraction 48%. CONCLUSION: 1. Fair exercise tolerance, a total of 6 minutes 30 seconds on standard Kunal protocol, total of 7.9 mets achieving 88% of maximum expected heart rate. 2. Severe hypertensive response to exercise returned to baseline during recovery. 3. The patient had mild calf pain with exercise. No chest pain was reported. 4. Minimal nondiagnostic EKG changes with exercise, returned to baseline during recovery. 5. Diaphragmatic attenuation with typical male pattern. There was no significant ischemia noted on the SPECT images. 6. Normal left ventricular size with mild hypokinesia at the anteroseptum and inferoseptum with calculated ejection fraction 48%. Job ID: [id number] DocumentID: [id number] Dictated Date: 06/20/2019 16:16:14 [employer] Pet Supp[employer] Salesperson Date: 06/20/2019 19:34:57 Dictated By: ALIREZA EVERETT MD
== END ==
LOC: CARD 10:50
PROVIDERS: ATTEND Physician Assistant
DX: I34.0 Nonrheumatic mitral (valve) insufficiency (principal); I10 Essential (primary) hypertension; I25.10 Atherosclerotic heart disease of native coronary artery without angina pectoris; E11.9 Type 2 diabetes mellitus without complications; E78.2 Mixed hyperlipidemia
CPT/HCPCS: 78452; 93017; 93306

== ENCOUNTER → 2021-12-07 | Outpatient (CLI) | payer BC ==
[~2021-12-07] MED LIST changes: -CATHETER FLUSH 10 ML SYR IV PRN; +CYCL10TA25 PO; -CYCL10TA9 PO; -HYDR50TA3 PO; +HYDR50TA6 PO; -METO-387 PO; +MTP25TSR PO
== END ==
LOC: CARD 11:00
PROVIDERS: ATTEND Physician Assistant
DX: I10 Essential (primary) hypertension (principal); I25.10 Atherosclerotic heart disease of native coronary artery without angina pectoris
CPT/HCPCS: 93306

== ENCOUNTER → 2022-06-29 | Outpatient (CLI) | payer BC ==
[~2022-06-29] MED LIST changes: +HYDR-4085 PO; -HYDR-87 PO
== END ==
LOC: CARDFS 11:34
PROVIDERS: ATTEND Internal Medicine Cardiovascular Disease
DX: I11.9 Hypertensive heart disease without heart failure (principal); I25.10 Atherosclerotic heart disease of native coronary artery without angina pectoris
CPT/HCPCS: 93306

== ENCOUNTER → 2022-08-02 | Outpatient (CLI) | payer BC ==
[~2022-08-02] VITALS: Ht 187 cm; Wt 128.0 kg
[~2022-08-02] MED LIST changes: +CATHETER FLUSH 10 ML SYR IVP PRN; +REGADENOSON 0.4 MG/5 ML SYR (LEXISCAN) IV ONE
[2022-08-02 09:20] VITALS: BP 145/79
[2022-08-02 09:34] VITALS: BP 174/67
--- NOTE | 2022-08-02 11:53 | Cardiology Stress Test Report ---
Stress Test Report Date of Procedure/Referring: Date of Procedure: Aug 02, 2022 PCP Clare Monge MD Admitting Physician Admitting Physician: Attending Physician: Alireza Morrell MD Indications: HTN Baseline Blood Pressure: Blood Pressure Systolic: 174 Blood Pressure Diastolic: 67 Baseline Vitals Vital Signs Date Time Temp Pulse Resp B/P (MAP) Pulse Ox O2 Delivery O2 Flow Rate FiO2 08/02/22 09:20 79 145/79 (101) 08/02/22 09:34 98 Baseline EKG: Baseline EKG: NSR Summary After explaining the procedure to the patient, he signed a consent and then brought to the stress nuclear laboratory. Patient received 0.4 mg Lexiscan for stress test, ECG, heart rate and blood pressure were monitored continuously. Resting and stress dose of radio tracer were injected, imaging was acquired and reviewed in short axis, horizontal long axis and vertical long axis views. TID: 0.96 SSS: 6 SDS: 6 EF: 60 1. Patient was unable to exercise beyond 5 minutes on standard Kunal protocol did not reach the target heart rate, test was terminated and converted to Lexiscan Myoview stress test 2. Patient tolerated Lexiscan well 3. Diaphragmatic attenuation with decreased uptake involving the mid to apical inferior wall and inferolateral wall with mild reversibility, most probably secondary to diaphragmatic attenuation. Overall there is no significant ischemia or infarction on SPECT images 4. Normal left ventricular size, ejection fraction 60% Copy Copies To 1: [facility] [place] ALIREZA MORRELL MD Aug 02, 2022 11:53
== END ==
LOC: CARD 07:30
PROVIDERS: ATTEND Internal Medicine Cardiovascular Disease
DX: I10 Essential (primary) hypertension (principal); I25.10 Atherosclerotic heart disease of native coronary artery without angina pectoris
CPT/HCPCS: 78452; 93017; A9502